=== PATIENT | female | born 1950 | race Caucasian/White ===

== ENCOUNTER → 2017-07-27 | Outpatient (CLI) | payer MEDICARE | END | disposition home or self-care (01) | LOC: RAD 11:54 | DX: J20.9 Acute bronchitis, unspecified (principal) | CPT/HCPCS: 71046 ==

== ENCOUNTER → 2018-08-03 | Day surgery (SDC) | payer MEDICARE ==
[~2018-08-03] MED LIST: ASCO500T2 PO; ASPI1TAB PO; CAPT12.52 PO; CHOL10002 PO; CLOP75TA57 PO; CRESTOR20 MG PO; FENO145T PO; FURO-68 PO; ISOS120T PO; IV RINGERS,LACTATED 1000ML 1,000 ML IV SCH; LIDOCAINE 1% PF 2 ML VIAL. ID PRN; METO200T2 PO; NIAC500T PO; ONDANSETRON PF 4 MG/2 ML VIAL. IV PRN; PANT40TA3 PO; POTA20TA12 PO; PROCHLORPERAZINE 10 MG/2 ML VIAL. IV PRN; PROPOFOL 60 ML IV ONE; RANO500T2 PO; fentaNYL PF VIAL 100 MCG/2 ML VIAL IV PRN
[2018-08-03 08:37] VITALS: BP 109/56
== END | disposition home or self-care (01) ==
LOC: SURG 06:56
PROVIDERS: ATTEND Internal Medicine Gastroenterology
DX: Z12.11 Encounter for screening for malignant neoplasm of colon (principal); K57.30 Diverticulosis of large intestine without perforation or abscess without bleeding; K64.0 First degree hemorrhoids; K22.2 Esophageal obstruction; I10 Essential (primary) hypertension; E78.00 Pure hypercholesterolemia, unspecified; K21.9 Gastro-esophageal reflux disease without esophagitis; J44.9 Chronic obstructive pulmonary disease, unspecified; I25.2 Old myocardial infarction; Z80.0 Family history of malignant neoplasm of digestive organs; Z88.5 Allergy status to narcotic agent; M19.90 Unspecified osteoarthritis, unspecified site; Z95.5 Presence of coronary angioplasty implant and graft; Z86.73 Personal history of transient ischemic attack (TIA), and cerebral infarction without residual deficits; Z83.71 Family history of colonic polyps; Z82.3 Family history of stroke; Z82.49 Family history of ischemic heart disease and other diseases of the circulatory system; F17.200 Nicotine dependence, unspecified, uncomplicated; Z79.899 Other long term (current) drug therapy; Z79.82 Long term (current) use of aspirin; Z90.49 Acquired absence of other specified parts of digestive tract; Z90.710 Acquired absence of both cervix and uterus; Z98.890 Other specified postprocedural states
CPT/HCPCS: 43235; 43450; G0105; J2704; 45378

== ENCOUNTER → 2018-11-08 | Outpatient (CLI) | payer MEDICARE ==
[2018-08-03 08:37] VITALS: BP 109/56
[~2018-11-08] MED LIST changes: -IV RINGERS,LACTATED 1000ML 1,000 ML IV SCH; -LIDOCAINE 1% PF 2 ML VIAL. ID PRN; -ONDANSETRON PF 4 MG/2 ML VIAL. IV PRN; -PROCHLORPERAZINE 10 MG/2 ML VIAL. IV PRN; -PROPOFOL 60 ML IV ONE; -fentaNYL PF VIAL 100 MCG/2 ML VIAL IV PRN
--- NOTE | 2018-11-08 14:24 | CARD ---
MR#: [id number] Date of Study: 11/08/2018 Ordering Physician: JOURDAN ARCOS, Referring Physician: JOURDAN ARCOS, Tech: Radha Alexander QING APPROVED REPORT EXAM: Two-dimensional and M-mode echocardiogram with Doppler and color Doppler. Other Information Quality : Good INDICATION Cardiac Disease: CAD 2D DIMENSIONS RVDd2.7 (2.9-3.5cm)Left Atrium(2D)3.5 (1.6-4.0cm) IVSd1.0 (0.7-1.1cm)Aortic Root(2D)3.0 (2.0-3.7cm) LVDd4.7 (3.9-5.9cm)LVOT Diameter2.0 (1.8-2.4cm) PWd0.7 (0.7-1.1cm)LVDs3.8 (2.5-4.0cm) FS (%) 25.0 %SV40.5 ml LVEF(%)55.0 (>50%) Aortic Valve AoV Peak Eric.114.3cm/sAoV VTI21.2cm AO Peak GR.5.2mmHgLVOT Peak Eric.98.6cm/s LVOT VTI 20.08cmAO Mean GR.3mmHg CHARITO (VMAX)2.27kv0PBZ (VTI)3.00cm2 Mitral Valve MV E Owuptelw97.2cm/sMV DECEL DJWM920jz MV A Mcvwzgoh13.9cm/sMV DSL33ck E/A Ratio0.8MVA (PHT)3.12cm2 TDI E/Lateral E'9.8E/Medial E'10.9 Tricuspid Valve TR P. Izhwiiig268pq/sRAP WXATMQMW5jdUi TR Peak Gr.64orSuSYLA91mjLi Pulmonary Vein S1 Tsmpbbsh66.3cm/sD2 Fwkkpody13.2cm/s LEFT VENTRICLE The left ventricle is normal size. There is normal left ventricular wall thickness. The left ventricu lar systolic function is normal. The Ejection Fraction is 55-60%. There is normal LV segmental wall m otion. Transmitral Doppler flow pattern is Grade I-abnormal relaxation pattern. RIGHT VENTRICLE The right ventricle is normal size. The right ventricular systolic function is normal. ATRIA The left atrium size is normal. The right atrium size is normal. The interatrial septum is intact wit h no evidence for an atrial septal defect or patent foramen ovale as noted on 2-D or Doppler imaging. AORTIC VALVE The aortic valve is calcified but opens well. Doppler and Color Flow revealed no significant aortic r egurgitation. There is no significant aortic valvular stenosis. MITRAL VALVE The mitral valve is calcified but opens well. Mitral annular calcification is mild. There is no evide nce of mitral valve prolapse. There is no mitral valve stenosis. Doppler and Color Flow revealed no m itral valve regurgitation noted. TRICUSPID VALVE The tricuspid valve is normal in structure and function. Doppler and Color Flow revealed trace tricus pid regurgitation. There is mild pulmonary hypertension. The PA pressure was estimated at 31 mmHg. Th ere is no tricuspid valve stenosis. PULMONIC VALVE The pulmonic valve is not well visualized. Doppler and Color Flow revealed trace to mild pulmonic sade vular regurgitation. There is no pulmonic valvular stenosis. GREAT VESSELS The aortic root is normal in size. The ascending aorta is normal in size. The IVC is normal in size a nd collapses >50% with inspiration. PERICARDIAL EFFUSION There is no evidence of significant pericardial effusion. Critical Notification Critical Value: No <Conclusion> The left ventricular systolic function is normal. The Ejection Fraction is 55-60%. There is normal LV segmental wall motion. Transmitral Doppler flow pattern is Grade I-abnormal relaxation pattern. Trace tricuspid regurgitation. There is mild pulmonary hypertension. The PA pressure was estimated at 31 mmHg. There is no evidence of significant pericardial effusion. Signed by : Jeyson Napier, Electronically Approved : 11/08/2018 14:24:11
== END | disposition home or self-care (01) ==
LOC: ECHO 12:42
PROVIDERS: ATTEND Internal Medicine Cardiovascular Disease
DX: I27.20 Pulmonary hypertension, unspecified (principal); I08.8 Other rheumatic multiple valve diseases; I25.10 Atherosclerotic heart disease of native coronary artery without angina pectoris
CPT/HCPCS: 93306

== ENCOUNTER → 2019-06-07 | Outpatient (CLI) | payer MEDICARE ==
[2018-08-03 08:37] VITALS: BP 109/56
[~2019-06-07] MED LIST changes: +IOHEXOL 300 MG/ML 100ML VIAL. IV ONE; -PANT40TA3 PO; +PANT40TA77 PO
--- NOTE | 2019-06-07 09:11 | RAD ---
EXAM: CT Chest with IV contrast CLINICAL HISTORY: Upper back pain, left-sided back pain. COMPARISON: None. TECHNIQUE: CT of the chest following the administration of intravenous contrast. Axial, coronal and sagittal reformatted images were generated. ---PQRS compliance statement - One or more of the following individualized dose reduction techniques were utilized for this study: 1. Automated exposure control 2. Adjustment of the mA and/or kV according to patient size 3. Use of iterative reconstruction technique--- FINDINGS: CHEST: Heart is not enlarged. Coronary artery calcifications are seen. Aortic calcifications are seen. The ascending aorta measures 3.3 cm. No axillary lymphadenopathy. Calcified mediastinal/left hilar lymph nodes are seen. No thoracic lymphadenopathy by size criteria. No pleural effusion or pneumothorax. 3 mm left lower lobe lung nodule (series 2 image 44) is seen. 3 mm left upper lobe lung nodule (series 2 image 20) is seen. Calcified granuloma left upper lobe. 4 mm pleural-based right lower lobe lung nodule is seen. 3 mm right upper lobe lung nodule (series 2 image 20) is seen. Additional smaller bilateral lung nodules are noted. No lobar consolidation. Visualized Upper abdomen: Upper abdomen is grossly unremarkable. Bones: Degenerative changes of spine are seen. IMPRESSION: 1. Bilateral lung nodules are seen measuring <6 mm. Per Fleischner Society guidelines for incidentally found solid nodules measuring less than 6 mm, no follow-up is necessary if patient is considered at low risk for lung cancer. If patient is considered to be at high risk, such as with history of smoking, then CT follow-up in about 12 months can be considered. 2. No thoracic lymphadenopathy. Electronically signed by: Guillaume Thomas MD (06/07/2019 9:08 AM) [id number]
== END | disposition home or self-care (01) ==
LOC: CT 09:30
PROVIDERS: ATTEND Family Medicine
DX: I25.10 Atherosclerotic heart disease of native coronary artery without angina pectoris (principal); R91.8 Other nonspecific abnormal finding of lung field; I70.0 Atherosclerosis of aorta; E78.5 Hyperlipidemia, unspecified; J84.10 Pulmonary fibrosis, unspecified
CPT/HCPCS: 71260; Q9967

== ENCOUNTER → 2019-07-14 | Outpatient (CLI) | payer MEDICARE ==
[2018-08-03 08:37] VITALS: BP 109/56
[~2019-07-14] MED LIST changes: -IOHEXOL 300 MG/ML 100ML VIAL. IV ONE
--- NOTE | 2019-07-14 17:24 | KCIC ---
CT scan of the lumbar spine without contrast 07/14/2019 CLINICAL HISTORY: Low back pain which radiates down the right leg TECHNIQUE: Unenhanced, contiguous, 0.625 mm axial sections were obtained the lumbar spine. 3 mm reconstructed sagittal, axial and coronal images were obtained. One or more of the following individualized dose reduction techniques were utilized for this study: 1. Automated exposure control. 2. Adjustment of the mA and/or kV according to patient size. 3. Use of iterative reconstruction technique. FINDINGS: Sagittal and coronal reconstructed images demonstrate very mild S-shaped curvature of the thoracolumbar spine. L5 is noted be partially sacralized. Degenerative changes consisting of vertebral endplate sclerosis and minimal to mild anterior and posterior vertebral body osteophyte formation are seen throughout the lumbar disc spaces. Disc space narrowing is seen at L4-5. Vacuum disc phenomenon is seen involving the L3-4 and L4-5 discs. Atherosclerotic calcification of the abdominal aorta and its branches is noted. No fracture or subluxation of the lumbar vertebrae is seen. On the axial images, the changes of degenerative disc disease are seen consisting of mild to moderate generalized disc bulges, degenerative changes involving the facet joints and mild to moderate ligamentum flavum hypertrophy. These findings results in mild central spinal canal stenosis at L2-3, moderate to severe central spinal canal stenosis at L3-4 and moderate central spinal canal stenosis at L4-5. Mild to moderate bilateral neural foraminal stenosis is seen at L4-5. IMPRESSION: The changes of degenerative disc disease are seen throughout the lumbar spine. These findings result in mild central spinal canal stenosis at L2-3, moderate to severe central spinal canal stenosis at L3-4 and moderate central spinal canal stenosis at L4-5. Mild to moderate bilateral neural foraminal stenosis is seen at L4-5. Electronically signed by: Pankaj Lea MD (07/14/2019 5:20 PM) [facility]
--- NOTE | 2019-07-14 17:29 | KCIC ---
CT scan of the cervical spine without contrast 07/14/2019 CLINICAL HISTORY: Low back pain which radiates down the left arm for 4 months. TECHNIQUE: Unenhanced, contiguous, 0.625 mm axial sections were obtained through the cervical spine. 2 mm reconstructed sagittal, axial and coronal images were obtained. One or more of the following individualized dose reduction techniques were utilized for this study: 1. Automated exposure control. 2. Adjustment of the mA and/or kV according to patient size. 3. Use of iterative reconstruction technique. FINDINGS: Sagittal and coronal reconstructed images demonstrate mild lateral curvature of the cervical spine, convex to the left. There is straightening of the normal cervical lordosis. Degenerative changes consisting of disc space narrowing, vertebral endplate sclerosis and minimal to mild anterior and posterior vertebral body osteophyte formation are seen throughout the cervical disc spaces. Atherosclerotic calcification is seen in the region of the carotid bifurcations. Degenerative changes are seen throughout the cervical disc spaces consisting of minimal to mild generalized disc bulges and degenerative changes involving the uncovertebral and facet joints. These findings do not result in definite areas of significant central spinal canal stenosis. Mild to moderate right greater than left neural foraminal stenosis is seen at C4-5 and C5-6. A 1 cm calcified granuloma is seen involving the left upper lobe. IMPRESSION: Degenerative changes are seen throughout the cervical spine. These findings do not result in significant central spinal canal stenosis at any level. Mild to moderate right greater than left neural foraminal stenosis is seen at C4-5 and C5-6. No acute osseous abnormality is seen. Electronically signed by: Pankaj Lea MD (07/14/2019 5:26 PM) [facility]
== END | disposition home or self-care (01) ==
LOC: KCIC CT 09:59
PROVIDERS: ATTEND Family Medicine
DX: M51.36 Other intervertebral disc degeneration, lumbar region (principal); M47.22 Other spondylosis with radiculopathy, cervical region; M48.061 Spinal stenosis, lumbar region without neurogenic claudication; M48.02 Spinal stenosis, cervical region; I65.23 Occlusion and stenosis of bilateral carotid arteries; M25.78 Osteophyte, vertebrae; I70.0 Atherosclerosis of aorta; M89.38 Hypertrophy of bone, other site; J84.10 Pulmonary fibrosis, unspecified
CPT/HCPCS: 72125; 72131

== ENCOUNTER → 2019-09-04 | Outpatient (CLI) | payer MEDICARE ==
[2018-08-03 08:37] VITALS: BP 109/56
[~2019-09-04] MED LIST changes: +IOHEXOL 180 MG/ML 10 ML VIAL. IT ONE; +LIDOCAINE 1% Multi-Dose 20 ML VIAL. ID ONE
--- NOTE | 2019-09-04 15:59 | KCIC ---
Lumbar Myelogram History: Lumbar radiculopathy Technique: Patient was informed of the risks of the procedure to include pain, infection, bleeding, seizures, nerve root injury, and allergic reaction to the contrast. All questions were answered. Patient signed a written consent form for a lumbar myelogram. The patient was placed in a prone oblique position on the fluoroscopy table. External site of the lower back was prepped and draped in the usual sterile fashion. Betadine was utilized for cleansing solution. 1% lidocaine was utilized for local anesthesia at the anticipated site of puncture right L1-2 interlaminar space. A 19-gauge guiding needle was advanced into the soft tissues. Through the guiding needle, a 25 gauge John needle was advanced until there was return of cerebral spinal fluid. Approximately 15 cc of Omnipaque 180 were then injected during fluoroscopic visualization. The needles were removed. Fluoroscopic spot images including standing images were acquired of the lumbar spine to include flexion and extension lateral views. The patient was then transferred to the CT department for CT examination of the lumbar spine. There were no immediate complications. Fluoroscopy time: 1 minute 2 seconds, 15 images Findings: There is no evidence of myelographic block. There is anterior extradural defect at L3-4. Vertebral body stature is maintained. There is degenerative disc disease at L4-5 and to lesser degree at L3-4, also narrowing of the L5-S1 intervertebral disc space likely in part on developmental basis. There is negligible posterior subluxation of L3 relative to L4 with extension. There is atherosclerotic calcification of the abdominal aorta. Impression: 1. There is anterior extradural defect at L3-4. There is degenerative disc disease greatest at L4-5 and to lesser degree at L3-4, also narrowing of the L5-S1 intervertebral disc space likely in part on developmental basis. There is multilevel lumbar facet degenerative change. Electronically signed by: Narciso Cain MD (09/04/2019 3:56 PM) [facility]
--- NOTE | 2019-09-04 17:31 | KCIC ---
EXAM: CT Lumbar Spine Myelogram INDICATION: Lumbar radiculopathy TECHNIQUE: Following intrathecal injection of contrast, multiple contiguous axial CT images were obtained through the lumbar spine. Post-processing reconstructed images were obtained for interpretation. All CT scans performed at this facility utilize dose optimization techniques as appropriate to the exam, including the following: Automated exposure control and adjustment of the mA and/or KV according to patient size (this includes techniques or standardized protocols for targeted exams where dose is indication/reason for exam). COMPARISON: CT lumbar spine without IV contrast of 07/14/2019 FINDINGS: The lowest fully formed disc is referred to as the L5-S1 level. ALIGNMENT: Alignment is within normal limits. OSSEOUS: No evidence of fracture or bone destruction. CONUS MEDULLARIS & CAUDA EQUINA: The conus medullaris is in normal position, terminating at L1-L2. The conus medullaris and cauda equine are intrinsically normal. SOFT TISSUES: Layering gallstones incidentally noted. Dense calcifications in the abdominal aorta without aneurysmal dilation. DISC LEVELS: T12-L1: Normal L1-L2: Left extraforaminal disc osteophyte complex abuts the psoas muscle but results in no significant central canal or foraminal stenosis. L2-L3: Mild diffuse disc bulge and bilateral facet hypertrophy results in mild bilateral foraminal narrowing. This is accentuated by bilateral ligamentum flavum thickening and facet hypertrophy asymmetric on the left that results in mild right lateral recess narrowing as well. Central canal remains patent. L3-L4: Diffuse disc bulge with loss of height is present along with vacuum phenomenon. Along with bilateral facet hypertrophy and ligamentum flavum thickening, moderate to severe central canal stenosis is present with crowding of the nerve roots and effacement of the CSF signal around the nerve roots at this level. Osteophytic spurring from the right greater than left bilateral superior articular facets at L4 also contribute to moderate right greater than left bilateral foraminal narrowing. L4-L5: Disc osteophyte complex with loss of height along with bilateral facet hypertrophy results in moderate bilateral foraminal stenosis. Central canal is patent. L5-S1: L5 is partially sacralized bilaterally. No central canal or foraminal stenosis is appreciated. IMPRESSION: Multilevel lumbar spinal degenerative spondylosis with the greatest level of stenosis evident at the L3-L4 level in the central canal. Electronically signed by: Liss Magana MD (09/04/2019 5:29 PM) [facility]
== END ==
LOC: KCIC 09:01
PROVIDERS: ATTEND Neurological Surgery
DX: M51.16 Intervertebral disc disorders with radiculopathy, lumbar region (principal); M48.061 Spinal stenosis, lumbar region without neurogenic claudication; M47.26 Other spondylosis with radiculopathy, lumbar region; I70.0 Atherosclerosis of aorta
CPT/HCPCS: 72132; 72265; Q9965

== ENCOUNTER → 2019-11-23 | Outpatient (CLI) | payer MEDICARE ==
[2018-08-03 08:37] VITALS: BP 109/56
[~2019-11-23] MED LIST changes: -ASCO500T2 PO; +ASCO500T4 PO; +DOCU-153 PO; +HYDR-2761 PO; -IOHEXOL 180 MG/ML 10 ML VIAL. IT ONE; -LIDOCAINE 1% Multi-Dose 20 ML VIAL. ID ONE; +METH750T2 PO; +NIAC500T24 PO
[2019-11-23 14:29] LABS: BASO # 0.1 x10^3/uL (0.0-0.2); BASO % 1 % (0-3); EOS # 0.1 x10^3/uL (0.0-0.7); EOS % 1 % (0-3); HEMATOCRIT 46.6 % (36.0-47.0); HEMOGLOBIN 15.6 g/dL (12.0-15.5); LYMPH # 1.8 x10^3/uL (1.0-4.8); LYMPH % 24 % (24-48); MEAN CORPUSCULAR HEMOGLOBIN 32 pg (25-35); MEAN CORPUSCULAR HGB CONC 34 g/dL (31-37); MEAN CORPUSCULAR VOLUME 95 fL (79-100); MONO # 0.5 x10^3/uL (0.0-1.1); MONO % 7 % (0-9); NEUT # 5.1 x10^3/uL (1.8-7.7); NEUT % 66 % (31-73); PLATELET COUNT 278 x10^3/uL (140-400); RED BLOOD COUNT 4.92 x10^6/uL (3.50-5.40); RED CELL DISTRIBUTION WIDTH 13.9 % (11.5-14.5); WHITE BLOOD COUNT 7.6 x10^3/uL (4.0-11.0)
[2019-11-23 14:56] LABS: ALBUMIN 3.5 g/dL (3.4-5.0); CALCIUM 9.1 mg/dL (8.5-10.1); CREATININE 1.4 mg/dL (0.6-1.0); GFR 37.2; POTASSIUM 4.2 mmol/L (3.5-5.1); TOTAL BILIRUBIN 0.6 mg/dL (0.2-1.0); TOTAL PROTEIN 7.1 g/dL (6.4-8.2)
--- NOTE | 2019-11-23 15:19 | EKG ---
[facility] [address] [place] [address] Test Date: 2019-11-23 Test Time: 15:14:28 Pat Name: ARACELI ERVIN Department: Room: Gender: F Dough Maker: SHINE Espinosa : 1950 Requested By: LYLY BECKER Order Number: [id number] Reading MD: Jeyson Napier Measurements Intervals [place] Rate: 55 P: 90 LA: 152 QRS: 164 QRSD: 84 T: 164 QT: 436 QTc: 419 Interpretive Statements SINUS RHYTHM ATRIAL PREMATURE COMPLEX(ES) ABNORMAL RIGHT AXIS DEVIATION T ABNORMALITY IN HIGH LATERAL LEADS ABNORMAL ECG Electronically Signed On 11-24-2019 8:41:16 CDT by Jeyson Napier
--- NOTE | 2019-11-23 15:26 | RAD ---
Chest radiograph 11/23/2019 2:30 PM INDICATION: Preoperative evaluation for lumbar laminectomy COMPARISON: None available TECHNIQUE: Frontal and lateral views of the chest are provided. FINDINGS: The cardiomediastinal silhouette is within normal limits. There are no pleural effusions. There is no pulmonary vascular congestion. There is no pneumothorax. The lungs are clear. Calcified granulomas noted at the left lung apex. No significant osseous abnormality is identified. IMPRESSION: No acute cardiopulmonary process. Electronically signed by: Beth Davis MD (11/23/2019 3:23 PM) [id number]
== END | disposition home or self-care (01) ==
LOC: SURGPAT 13:49
PROVIDERS: ATTEND Neurological Surgery
DX: Z01.818 Encounter for other preprocedural examination (principal); Z11.59 Encounter for screening for other viral diseases; I49.1 Atrial premature depolarization; R94.31 Abnormal electrocardiogram [ECG] [EKG]; J84.10 Pulmonary fibrosis, unspecified; M48.062 Spinal stenosis, lumbar region with neurogenic claudication; Z88.5 Allergy status to narcotic agent
CPT/HCPCS: 36415; 71046; 80053; 85025; 87635; 87641; 93005

== ENCOUNTER 2019-11-27 06:50 | Observation (INO) | payer MEDICARE ==
[~2019-11-27] VITALS: Ht 170.2 cm; Wt 93.2 kg
[2019-11-27] VITALS (10 sets, daily range): BP systolic 92–129; BP diastolic 51–81
[~2019-11-27 06:50] MED LIST changes: +BACITRACIN 50,000 UNIT in IV NORMAL SALINE 1000ML BAG 1,000 ML IRR ONE; +DEXAMETHASONE SOD PHOS 20 MG/5 ML VIAL. ONE; -DOCU-153 PO; -HYDR-2761 PO; +LIDOCAINE 2% PF 5 ML VIAL. ONE; -METH750T2 PO; +ONDANSETRON PF 4 MG/2 ML VIAL. ONE; +PHENYLEPHRINE in 0.9% NACL PF 1 MG/10 ML SYRINGE. IV ONE; +PROPOFOL 10 MG/ML (20ML) VIAL. IV ONE; +REMIFENTANIL 2 MG VIAL. IV ONE; +ROCURONIUM 50 MG/5 ML VIAL. ONE; +SUCCINYLCHOLINE 200 MG/10 ML VIAL. ONE; +fentaNYL PF VIAL 100 MCG/2 ML VIAL ONE
[2019-11-27] MEDS ORDERED: ONDANSETRON PF 4 MG/2 ML VIAL. IV PRN (07:00)
[2019-11-27] MEDS ORDERED: ceFAZolin 2GM PREMIX 2 GM/50 ML BAG IV ONE (07:00)
[2019-11-27] MEDS ORDERED: PROCHLORPERAZINE 10 MG/2 ML VIAL. IV PRN (07:00)
[2019-11-27] MEDS ORDERED: fentaNYL PF VIAL 100 MCG/2 ML VIAL IV PRN (07:00)
[2019-11-27] MEDS ORDERED: LIDOCAINE 1% PF 2 ML VIAL. ID PRN (07:00)
[2019-11-27] MEDS ORDERED: GELATIN SPONGE SIZE 100. ONE (07:16)
[2019-11-27] MEDS ORDERED: KETOROLAC 60 MG/2 ML VIAL. ONE (07:17)
[2019-11-27] MEDS ORDERED: BUPIVACAINE-EPI 0.5%-1:200000 MPF 30 ML VIAL. ONE (07:17)
[2019-11-27] MEDS ORDERED: THROMBIN TOPICAL 20,000 UNIT SPRAY.SYRN KIT TP ONE (07:17)
[2019-11-27] MEDS: IV RINGERS,LACTATED 1000ML 1,000 ML IV SCH ×2 (07:45→12:25)
[2019-11-27] MEDS ORDERED: PHENYLEPHRINE in 0.9% NACL PF 1 MG/10 ML SYRINGE. IV ONE ×2 (08:20→08:21)
[2019-11-27] MEDS ORDERED: GLYCOPYRROLATE 1 MG/5 ML VIAL. ONE (09:13)
[2019-11-27] MEDS ORDERED: ePHEDrine PF IN SALINE 50 MG/10 ML SYRINGE. IV ONE (09:59)
[2019-11-27] MEDS ORDERED: DESFLURANE 61 TO 120 MINUTES IH ONE (10:10)
[2019-11-27] MEDS ORDERED: PROPOFOL 50 ML IV ONE ×2 (10:10→10:14)
[2019-11-27] MEDS: POTASSIUM CL 20MEQ D5-0.45NACL 1,000 ML IV SCH (11:31)
--- NOTE | 2019-11-27 11:41 | OP ---
DATE OF SURGERY: 11/27/2019 PREOPERATIVE DIAGNOSES: Lumbar spinal stenosis L3-L4 with right lumbar radiculopathy. POSTOPERATIVE DIAGNOSES: Lumbar spinal stenosis L3-L4 with right lumbar radiculopathy. OPERATION PERFORMED: Right direct laminectomy L3-L4. The operation was done with EMG monitoring, SSEP monitoring, fluoroscopy, microscopic dissection. SURGEON: Adal Becker M.D. BASTING CLEANER: DILLAN Bronson assisted with the surgery. She assisted with the exposure with the laminectomy as well as the decompression as well as the closure. OPERATIVE INDICATIONS: The patient is a pleasant 69-year-old woman who developed intractable back and right leg pain which she failed conservative measures. On imaging studies, the principal abnormality was at L3-L4 where there was severe lumbar spinal stenosis. She had undergone previous surgery below this and had done well. I discussed with her the surgery and the risks involved and she wished to go ahead. DESCRIPTION OF PROCEDURE: Following general endotracheal anesthesia, the patient was positioned prone on the Willy table. Lumbar region prepped and draped in standard fashion. BRYANT hose and AV impulse boots were applied for DVT prophylaxis. The microscope was draped. Fluoroscopy was draped and brought into field. Monitoring was established. Ancef 2 grams was given less than 1 hour prior to initiation of surgery. Using fluoroscopic guidance, a portion of her previous incision was opened along with a slight extension superiorly. I dissected down through skin and subcutaneous tissue. I reflected the paraspinal muscles and placed a Hardin microdisk retractor. I brought in the microscope. There was very thickened hypertrophic facets. I drilled down through this and tilted the patient away from me and drilled across the midline and then working laterally, I encountered the ligamentum flavum and I gently worked inferiorly and performed a partial foraminotomy. I grasped and peeled away thickened ligamentum flavum. One area was densely scarred to the underlying dura and I was not able to free it. However, the bone above the ligament was widely removed and I was able to remove ligament around this area, so that there was no pressure on the dura. I carried my ligamentum removal bilaterally and I assured myself that the dura was very free. I did gently retract medially and palpated the disc, which was bulging slightly, but extremely hard. I felt no discectomy should be performed. I then irrigated copiously with antibiotic solution. Hemostasis was excellent. I then removed the retractor, obtained hemostasis in the muscle and I closed the wound in layers with absorbable suture. The skin was closed with 4-0 subcuticular stitch. I felt the surgery went very well. ADAL BECKER MD DR: RACHAEL/colleen JOB#: [id number] / [id number] JORGE A
[2019-11-27] MEDS: fentaNYL PF VIAL 100 MCG/2 ML VIAL IV PRN ×4 (11:42→12:53)
[2019-11-27] MEDS ORDERED: MAGNESIUM HYDROXIDE 2,400 MG/30 ML ORAL.SUSP. PO PRN (11:45)
[2019-11-27] MEDS ORDERED: diphenhydrAMINE HCL 25 MG CAPSULE PO PRN (11:45)
[2019-11-27] MEDS ORDERED: CALCIUM CARBONATE 500 MG TAB.CHEW PO PRN (11:45)
[2019-11-27] MEDS ORDERED: MAG HYDROX/ALUMINUM HYD/SIMETH 30 ML ORAL.SUSP PO PRN (11:45)
[2019-11-27] MEDS ORDERED: ONDANSETRON PF 4 MG/2 ML VIAL. IVP PRN (11:45)
[2019-11-27] MEDS ORDERED: NALOXONE 0.4 MG/ML VIAL. IV PRN (11:45)
[2019-11-27] MEDS ORDERED: ACETAMINOPHEN 325 MG TABLET. PO PRN (11:45)
[2019-11-27] MEDS ORDERED: 0.9 % SODIUM CHLORIDE 10 ML DISP.SYRIN. IV PRN (11:45)
[2019-11-27] MEDS ORDERED: HYDROcodone/APAP 5/325MG 1 TAB TABLET PO PRN (11:45)
[2019-11-27] MEDS: fentaNYL PF VIAL 100 MCG/2 ML VIAL IVP PRN ×3 (16:10→21:39)
[2019-11-27] MEDS ORDERED: DIPHENHYDRAMINE PO SCH (17:00)
[2019-11-27] MEDS ORDERED: FENOFIBRATE,MICRONIZED 134 MG CAPSULE PO SCH (17:00)
[2019-11-27] MEDS ORDERED: LISINOPRIL 5 MG TABLET. PO SCH (17:00)
[2019-11-27] MEDS ORDERED: ATORVASTATIN CALCIUM 40 MG TABLET. PO SCH (17:00)
[2019-11-27] MEDS ORDERED: ASPIRIN PO SCH (17:00)
[2019-11-27] MEDS: RANOLAZINE 500 MG TAB.ER.12H PO SCH (18:01)
[2019-11-27] MEDS: DOCUSATE SODIUM 100 MG CAPSULE. PO SCH (21:21)
[2019-11-27] MEDS: METHOCARBAMOL 750 MG TABLET PO PRN (21:21)
--- NOTE | 2019-11-27 22:37 | HP ---
ADMIT DATE: 11/27/2019 PREOPERATIVE HISTORY AND PHYSICAL DATE OF ADMISSION/SURGERY: 11/27/2019 HISTORY OF PRESENT ILLNESS: The patient is a pleasant 69-year-old woman, who is having difficulty with low back pain and pain that radiates to the right buttock and right inguinal region. There is also pain and numbness, which radiate down the lateral aspect of her right leg to the top of the right foot. The problem started about 10 years ago and has been progressive. She rates her pain 10/10. Lying down makes the problem worse. PAST MEDICAL HISTORY: Angina, chest pain, myocardial infarction, hypertension, stroke, tonsillitis. PAST SURGICAL HISTORY: Hernia repair x3, hysterectomy, cholecystectomy, lumbar laminectomy, craniotomy with cerebral artery aneurysm repair in 2002, broken foot surgery in 2013, appendectomy, and cardiac stents. CURRENT MEDICATIONS: Lasix, isosorbide, metoprolol, K-Dur, Protonix, Plavix, Crestor, fenofibrate, captopril, vitamin D, aspirin, niacin, calcium, vitamin D3, and Excedrin. FAMILY HISTORY: Cancer, epilepsy, heart disease, hypertension, spine problems. SOCIAL HISTORY: Retired; ; does not smoke; drinks alcohol 1-2 times per year. ALLERGIES: MORPHINE. REVIEW OF SYSTEMS: A 12-point review of systems was performed and is noncontributory except that mentioned above. PHYSICAL EXAMINATION: GENERAL: Alert, pleasant, in no acute distress. HEAD: Normocephalic, atraumatic. SKIN: Warm and dry. MUSCULOSKELETAL: Lumbar paraspinal muscle bulk is normal; restricted range of motion of the lumbar spine; gxfq-oe-[id number] tenderness of the lower lumbar spine with palpation; normal range of motion of the lower extremities bilaterally. EXTREMITIES: No clubbing, cyanosis, or edema. NEUROLOGIC: Alert and oriented x3; normal recent and remote memory. Strength is 5/5 in the lower extremities bilaterally. Sensory was intact to light touch in the lower extremities except for decreased sensation of the dorsum of the right foot. Reflexes were present and symmetric in the lower extremities bilaterally, negative straight leg raising bilaterally; normal gait. IMAGING: I reviewed her lumbar myelogram and CT scan. On these studies, she has severe lumbar spinal stenosis at L3-L4. ASSESSMENT AND PLAN: My recommendation is that she undergo a right direct laminectomy/diskectomy at L3-L4. I spoke with her about the surgical risks, technique, and expected postoperative course. She understands and would like to go ahead. We are going to make the arrangements. LYLY BECKER MD DR: CLARENCE/colleen JOB#: [id number] / [id number] JORGE A
[2019-11-28] MEDS: POTASSIUM CL 20MEQ D5-0.45NACL 1,000 ML IV SCH (00:51)
[2019-11-28 03:00] VITALS: BP 100/63
[2019-11-28] MEDS: HYDROcodone/APAP 5/325MG 1 TAB TABLET PO PRN ×2 (04:24→08:55)
[2019-11-28] MEDS: RANOLAZINE 500 MG TAB.ER.12H PO SCH (06:23)
[2019-11-28] MEDS: METHOCARBAMOL 750 MG TABLET PO PRN (06:32)
[2019-11-28 06:33] VITALS: BP 105/62
[2019-11-28] MEDS ORDERED: FUROSEMIDE 40 MG TABLET. PO SCH (07:00)
[2019-11-28] MEDS ORDERED: METOPROLOL SUCC 24HR ER 100 MG TAB.ER.24H. PO SCH (07:00)
[2019-11-28] MEDS ORDERED: ISOSORBIDE MONONITRATE ER 30 MG TAB.ER.24H PO SCH (07:00)
[2019-11-28] MEDS ORDERED: PANTOPRAZOLE 40 MG TABLET.DR. PO SCH (07:00)
[2019-11-28] MEDS ORDERED: POTASSIUM CHLORIDE 20 MEQ TABLET.ER. PO SCH (07:00)
[2019-11-28] MEDS ORDERED: CHOLECALCIFEROL (VITAMIN D3) 1,000 UNIT TABLET PO SCH (07:00)
[2019-11-28] MEDS: DOCUSATE SODIUM 100 MG CAPSULE. PO SCH (08:53)
[2019-11-28] MEDS ORDERED: NIACIN ER 250 MG CAPSULE.ER PO SCH (09:00)
--- NOTE | 2019-11-28 09:37 | NUR ---
SW following. Discussed with RN, pt from home with spouse, gets around fine, regular diet. RN advised no SW needs, anticipates discharge today. SW will continue to follow should any discharge needs arise.
[2019-11-28] MEDS ORDERED: DOCU-153 PO (10:32)
[2019-11-28] MEDS ORDERED: METH750T2 PO (10:32)
[2019-11-28] MEDS ORDERED: HYDR-2761 PO (10:32)
--- NOTE | 2019-11-28 10:34 | DISCH ---
DISCHARGE INSTRUCTIONS Condition on Discharge Condition on Discharge: Stable Activity After Discharge Activity Instructions for Disc: Avoid exertion, Other, see below Other activity instructions: no driving for a week Bathing Instructions: Shower-keep dressing dry Lifting Instructions after Dis: No heavy lifting Driving Instructions after Dis: Do not drive today Weight Bearing Status after Di: No restrictions Diet after Discharge Diet after Discharge: No Added Sugar Additional Diet Restrictions: resume home diet Wound Incision Care Wound/Incision Care: Ice to area for comfort, Other, see below Other wound/incision instructi: may remove dressing in 48 hours if dry then may shower, no soaking Contacting the DRSusan after DC Call your doctor for: Concerns you may have Follow-Up Follow up with: Dr. Becker's nurse in 2 weeks [phone] LYLY BECKER MD November 28, 2019 10:34
[2019-11-28 11:00] VITALS: BP 99/52
--- NOTE | 2019-11-28 11:51 | NUR ---
Discharge instructions and belongings reviewed, verbalized understanding. Patient was escorted out via wheelchair by Cintia LÓPEZ
--- NOTE | 2019-11-28 15:07 | PATHOLOGY ---
[facility] Accession Number: [id number] . 01 Material submitted: . vertebral column - LUMBAR DISC AND DECOMPRESSION . 01 Clinical history: . Lumbar stenosis with neurogenic claudication . 02 Diagnosis: Segments of fibrocartilaginous, adipose, and skeletal muscle tissue and bone, lumbar disc and decompression: - Degenerative changes of fibrocartilaginous tissue. LBQ 11/28/2019 1115 Local . 02 Comment: There is no evidence of an acute inflammatory process or malignancy. (JPM/db; 11/28/2019) . 02 Electronically signed: . Nolberto Rodriguez MD, Pathologist NPI- [id number] . 01 Gross description: . The specimen is received in formalin, labeled "Saira Nelson, lumbar disc and decompression" and consists of multiple fragments of pink-lundberg bone and soft tissue measuring 2.6 x 2.6 x 0.6 cm in aggregate which are entirely submitted in A1 following decalcification. (SDY; 11/27/2019) SYU/SYU 11/27/2019 1552 Local . 02 Pathologist provided ICD-10: M51.36 . 02 CPT . 720235, [id number] Specimen Comment: A courtesy copy of this report has been sent to [phone], [phone] Specimen Comment: [id number] Specimen Comment: Report sent to / DR MERINO Performed at: 01 [facility] [address], [place] [id number] MD Angel Ramirez MD Phone: [phone] Performed at: 02 [facility] [address], [place] [id number] MD Nolberto Rodriguez MD Phone: [phone]
== END 2019-11-28 11:54 | disposition home or self-care (01) ==
LOC: SURG 06:50 → 4 NORTH 12:04
PROVIDERS: ADMIT Neurological Surgery; ATTEND Neurological Surgery
DX: M48.061 Spinal stenosis, lumbar region without neurogenic claudication (principal); M54.5 Low back pain; I20.9 Angina pectoris, unspecified; I25.2 Old myocardial infarction; I10 Essential (primary) hypertension; Z86.73 Personal history of transient ischemic attack (TIA), and cerebral infarction without residual deficits; Z79.899 Other long term (current) drug therapy; Z98.890 Other specified postprocedural states; Z90.710 Acquired absence of both cervix and uterus; Z90.49 Acquired absence of other specified parts of digestive tract; Z95.1 Presence of aortocoronary bypass graft
CPT/HCPCS: 63005; 76000; 82962; 88304; 88311; 96374; 96376; 97161; A7015; G0378; G0379; J0330; J0696; J1100; J1885; J2370; J2405; J2704; J3010; J3490; J7030; J7120; Q0163

== ENCOUNTER → 2020-03-04 | Outpatient (CLI) | payer MEDICARE ==
[~2020-03-04] MED LIST changes: -BACITRACIN 50,000 UNIT in IV NORMAL SALINE 1000ML BAG 1,000 ML IRR ONE; -DEXAMETHASONE SOD PHOS 20 MG/5 ML VIAL. ONE; +DOCU-153 PO; +HYDR-2761 PO; -LIDOCAINE 2% PF 5 ML VIAL. ONE; +METH750T2 PO; -ONDANSETRON PF 4 MG/2 ML VIAL. ONE; -PHENYLEPHRINE in 0.9% NACL PF 1 MG/10 ML SYRINGE. IV ONE; -PROPOFOL 10 MG/ML (20ML) VIAL. IV ONE; -REMIFENTANIL 2 MG VIAL. IV ONE; -ROCURONIUM 50 MG/5 ML VIAL. ONE; -SUCCINYLCHOLINE 200 MG/10 ML VIAL. ONE; -fentaNYL PF VIAL 100 MCG/2 ML VIAL ONE
--- NOTE | 2020-03-04 16:17 | CARD ---
MR#: [id number] Date of Study: 03/04/2020 Ordering Physician: JOURDAN ARCOS, Referring Physician: JOURDAN ARCOS, Tech: Galina Mclean APPROVED REPORT EXAM: Two-dimensional and M-mode echocardiogram with Doppler and color Doppler. Other Information HR: 54bpm INDICATION COPD Palpitations Cardiac Disease: CAD RISK FACTORS Hypertension Hyperlipidemia Diabetes Smoking 2D DIMENSIONS RVDd3.5 (2.9-3.5cm)Left Atrium(2D)3.9 (1.6-4.0cm) IVSd1.0 (0.7-1.1cm)Aortic Root(2D)3.0 (2.0-3.7cm) LVDd4.9 (3.9-5.9cm)LVOT Diameter2.0 (1.8-2.4cm) PWd1.1 (0.7-1.1cm)LVDs3.1 (2.5-4.0cm) FS (%) 37.4 %SV75.1 ml LVEF(%)67.2 (>50%) Aortic Valve AoV Peak Eric.110.6cm/sAoV VTI24.5cm AO Peak GR.4.9mmHgLVOT VTI 19.03cm AO Mean GR.3mmHg Mitral Valve MV E Evhcbvtw58.4cm/sMV DECEL [id number] MV A Nbwdkqmx50.5cm/sE/A Ratio1.4 TDI Lateral E' P. V5.86cm/sMedial E' P. V7.40cm/s E/Lateral E'13.7E/Medial E'10.9 Tricuspid Valve TR P. Kkfgwydy289jp/sRAP NEDONWWP7tsMg TR Peak Gr.35frKgHTYF30eoXl Pulmonary Vein S1 Ltddoakz72.2cm/sS2 Wsmzuwrx73.44cm/s D2 Cejdhugy75.4cm/s LEFT VENTRICLE The left ventricle is normal size. There is normal left ventricular wall thickness. The left ventricu lar systolic function is normal. The Ejection Fraction is 55%. There is normal LV segmental wall beth on. The left ventricular diastolic function and filling is normal for age. RIGHT VENTRICLE The right ventricle is borderline dilated. There is normal right ventricular wall thickness. The righ t ventricular systolic function is normal. ATRIA The left atrium size is normal. The right atrium size is normal. The interatrial septum is intact wit h no evidence for an atrial septal defect or patent foramen ovale as noted on 2-D or Doppler imaging. AORTIC VALVE The aortic valve is thickened but opens well. Doppler and Color Flow revealed no significant aortic r egurgitation. There is no significant aortic valvular stenosis. Calculated aortic valve area is 2.53 cm2 with maximum pressure gradient of 6 mmHg and mean pressure gradient of 3 mmHg. MITRAL VALVE The mitral valve is normal in structure and function. There is no evidence of mitral valve prolapse. There is no mitral valve stenosis. Doppler and Color-flow revealed trace mitral regurgitation. TRICUSPID VALVE The tricuspid valve is normal in structure and function. Doppler and Color Flow revealed trace tricus pid regurgitation with an estimated PAP of 34 mmHg. There is no tricuspid valve stenosis. PULMONIC VALVE The pulmonary valve is normal in structure and function. Doppler and Color Flow revealed trace pulmon ic valvular regurgitation. GREAT VESSELS The aortic root is normal in size. The ascending aorta is normal in size. The IVC is normal in size a nd collapses >50% with inspiration. PERICARDIAL EFFUSION There is no evidence of significant pericardial effusion. Critical Notification Critical Value: No <Conclusion> The left ventricular systolic function is normal. The Ejection Fraction is 55%. There is normal LV segmental wall motion. Trace mitral regurgitation. Trace tricuspid regurgitation with an estimated PAP of 34 mmHg. There is no evidence of significant pericardial effusion. Signed by : Jeyson Napier, Electronically Approved : 03/04/2020 16:17:04
== END ==
LOC: ECHO 10:31
PROVIDERS: ATTEND Internal Medicine Cardiovascular Disease
DX: I25.10 Atherosclerotic heart disease of native coronary artery without angina pectoris (principal)
CPT/HCPCS: 93306

== ENCOUNTER → 2020-04-01 | Outpatient (CLI) | payer MEDICARE ==
[~2020-04-01] MED LIST changes: +IOHEXOL 300 MG/ML 50 ML VIAL. IT ONE; +LIDOCAINE 1% Multi-Dose 20 ML VIAL. ID ONE
--- NOTE | 2020-04-01 15:18 | KCIC ---
Cervical Myelogram History: Cervical radiculopathy Technique: Patient was informed of the risks of the procedure to include pain, infection, bleeding, seizures, nerve root injury, and allergic reaction to the contrast. All questions were answered. Patient signed a written consent form for a cervical myelogram. The patient was placed in a prone oblique position on the flouroscopy table. External site of the lower back was prepped and draped in the usual sterile fashion. Betadine was utilized for cleansing solution. 1% lidocaine was utilized for local anesthesia at the anticipated site of puncture right L1-L2 interlaminar space. A 19-gauge guiding needle was advanced into the soft tissues. Through the guiding needle, a 25 gauge John needle was advanced until there was return of cerebral spinal fluid. Approximately 10 cc of Omnipaque 300 were then injected during fluoroscopic visualization. The needles were removed. Patient was repositioned so as to allow for the flow of contrast into the cervical spine. Fluoroscopic spot images were acquired of the cervical spine, also lateral radiograph acquired. The patient was then transferred to the CT department for CT examination of the cervical spine. There were no immediate complications. Fluoroscopy time and number of images: 47 seconds; 7 images Findings: There was no evidence of myelographic block. There is multilevel cervical facet degenerative change. There are anterior extradural defects at C3-4 and C4-5, more inferior cervical spine poorly visualized on lateral view due to overlying bone and soft tissues. Impression: 1. There is multilevel cervical facet degenerative change. There are anterior extradural defects C3-4 and C4-5, more inferior cervical spine not well-visualized on the lateral view due to overlying bone and soft tissues. Electronically signed by: Narciso Cain MD (04/01/2020 3:14 PM) [id number]
--- NOTE | 2020-04-01 15:29 | KCIC ---
Cervical spine CT without contrast History:Cervical radiculopathy, left arm pain and weakness Technique: Noncontrast CT imaging was performed of the cervical spine. Multiplanar images are reviewed. Exposure: One or more of the following individualized dose reduction techniques were utilized for this examination: 1. Automated exposure control 2. Adjustment of the mA and/or kV according to patient size 3. Use of iterative reconstruction technique. Comparison: Noncontrast CT cervical spine exam July 14, 2019 Findings: Vertebral body stature is maintained. There is very mild reversal of the lordotic curvature centered near C5. Vertebral body AP alignment is within normal limits. There is moderate degenerative disc disease C5-6 and to a somewhat lesser degree at C4-5 and minimally at C3-4 and C6-7. Cervical cord caliber is within normal limits. Atlantoaxial distance is within normal limits, associated degenerative change. There is adequate alignment of the lateral masses of C1 relative to C2. Occipital condylar-C1 articulation is maintained. There is degree of diffuse narrowing of the cervical spinal canal on a developmental basis. There is calcified nodule of the visualized left lung apex. There is degree of wall thickening of the limited visualized proximal esophagus. C2-3: There is mild right facet hypertrophic change. Neural foramina and spinal canal are adequate. C3-4: There is shallow posterior central protrusion. Central canal is narrowed to about 8 to 9 mm as measured on sagittal images. There is yygr-ot-zhmeaxun facet degenerative change bilaterally. There is very mild right uncovertebral degenerative change. There is mild narrowing of the right neural foramen, left neural foramen adequate. C4-C5: There is very minimal disc osteophyte complex. Central canal is minimally narrowed to about 9 mm. There is moderate bilateral facet hypertrophic change greater on the left. There is uncovertebral degenerative change bilaterally greater on the right. Left neural foramen is adequate, fairly severe narrowing of the right neural foramen. C5-C6: There is very minimal disc osteophyte complex. Central canal is minimally narrowed to 8 to 9 mm. There is bilateral uncovertebral degenerative change, also facet degenerative change somewhat greater in the right. There is fairly severe right and moderate to severe left neural foramina compromise. C6-C7: Spinal canal is adequate. There is facet degenerative change bilaterally. There is mild left uncovertebral degenerative change. Neural foramina are overall adequate. C7-T1: Neural foramina and spinal canal are adequate. Impression: 1. There is moderate degenerative disc disease at C5-6 and C4-5, to a lesser degree at C3-4 and C6-7. There is multilevel mild spondylosis. There is degree of cervical spinal stenosis on developmental basis, additional mild narrowing C3-4 through C5-6 on the order of 8 to 9 mm. 2. Facet and uncovertebral degenerative change contributes to neural foramina compromise, more significant narrowing on the right at C4-5 and right greater than left at C5-6, minimal narrowing on the right at C3-C4. 3. There is nonspecific wall thickening of the visualized proximal esophagus. Electronically signed by: Narciso Cain MD (04/01/2020 3:26 PM) [id number]
== END | disposition home or self-care (01) ==
LOC: KCIC 08:34
PROVIDERS: ATTEND Neurological Surgery
DX: M50.121 Cervical disc disorder at C4-C5 level with radiculopathy (principal); M50.11 Cervical disc disorder with radiculopathy, high cervical region; M47.812 Spondylosis without myelopathy or radiculopathy, cervical region; M40.12 Other secondary kyphosis, cervical region; E78.5 Hyperlipidemia, unspecified; K21.9 Gastro-esophageal reflux disease without esophagitis; J44.9 Chronic obstructive pulmonary disease, unspecified; M25.78 Osteophyte, vertebrae; F17.210 Nicotine dependence, cigarettes, uncomplicated; Z88.8 Allergy status to other drugs, medicaments and biological substances; Z79.899 Other long term (current) drug therapy
CPT/HCPCS: 62302; 72126; J3490; Q9967

== ENCOUNTER → 2021-07-08 | Outpatient (CLI) | payer MEDICARE ==
[~2021-07-08] MED LIST changes: +DOCU-148 PO; -DOCU-153 PO; -IOHEXOL 300 MG/ML 50 ML VIAL. IT ONE; -LIDOCAINE 1% Multi-Dose 20 ML VIAL. ID ONE; +METH-562 PO; -METH750T2 PO
--- NOTE | 2021-07-08 12:50 | RAD ---
EXAM: Chest, 2 views. HISTORY: Cough. COMPARISON: 11/23/2019. FINDINGS: 2 views of the chest are obtained. There is no infiltrate, pleural effusion or pneumothorax . There is a prominent cardiac silhouette. There are calcified granulomas within the left upper lobe. IMPRESSION: No acute pulmonary finding. Electronically signed by: Leanne Chiang MD (07/08/2021 12:48 PM) [id number]
== END ==
LOC: RAD 10:17
PROVIDERS: ATTEND Family Medicine
DX: J84.10 Pulmonary fibrosis, unspecified (principal); R05.9 Cough, unspecified
CPT/HCPCS: 71046